=== PATIENT | female | born 1995 | race Caucasian/White ===

== ENCOUNTER 2019-06-06 13:45 | Observation (INO) | payer OTHER ==
[~2019-06-06] VITALS: Ht 160 cm; Wt 95.3 kg
== END 2019-06-06 14:25 | disposition home or self-care (01) ==
LOC: SPU 13:45
PROVIDERS: ADMIT Obstetrics & Gynecology; ATTEND Obstetrics & Gynecology
DX: O42.913 Preterm premature rupture of membranes, unspecified as to length of time between rupture and onset of labor, third trimester (principal); Z3A.30 30 weeks gestation of pregnancy
CPT/HCPCS: 81002-TC; G0378

== ENCOUNTER 2019-08-05 00:19 | Inpatient (IN) | payer OTHER ==
[~2019-08-05] VITALS: Ht 160 cm; Wt 99.8 kg
[2019-08-05] MEDS ORDERED: DINOPROSTONE 10 MG SUPP VG ONE ×2 (01:45→02:00)
[2019-08-05] MEDS ORDERED: OXYTOCIN/0.9 % SODIUM CHLORIDE 1,000 ML IV SCH ×2 (01:56→13:05)
[2019-08-05] MEDS ORDERED: TERBUTALINE SULFATE 1 MG/ML VIAL SUBCUT ONE (02:00)
[2019-08-05 02:41] LABS: BASOPHILS % (AUTO) 0.4 % (0.0-2.0); EOSINOPHILS # (AUTO) 0.1 K/uL (0.0-0.4); EOSINOPHILS % (AUTO) 0.5 % (0.0-4.0); HEMATOCRIT 37.3 % (36-48); HEMOGLOBIN 12.8 g/dL (12.0-16.0); LYMPHOCYTES # (AUTO) 3.2 K/uL (1.0-5.5); LYMPHOCYTES % (AUTO) 26.2 % (20.5-51.5); MEAN CORPUSCULAR HEMOGLOBIN 32 pg (27-31); MEAN CORPUSCULAR HGB CONC 34 % (32-36); MEAN CORPUSCULAR VOLUME 93 fL (79.0-98.0); MONOCYTES # (AUTO) 1.1 K/uL (0.0-1.0); MONOCYTES % (AUTO) 9.4 % (1.7-9.3); NEUTROPHILS # (AUTO) 7.7 K/uL (1.8-7.7); NEUTROPHILS % (AUTO) 63.5 % (40.0-70.0); PLATELET COUNT (AUTO) 225 K/uL (130-430); RED BLOOD CELL COUNT(AUTO) 4.01 MIL/uL (4.2-6.2); RED CELL DISTRIBUTION WIDTH 13.3 % (9.0-15.0); WHITE BLOOD COUNT (AUTO) 12.1 K/uL (4.8-10.8)
[2019-08-05 03:34] VITALS: BP_SYST 102
[2019-08-05] MEDS: LR 1,000 ML IV SCH ×3 (05:32→19:01)
[2019-08-05] MEDS ORDERED: ONDANSETRON HCL 4 MG/2 ML VIAL IVP ONE (08:46)
[2019-08-05] MEDS ORDERED: MORPHINE SULFATE 10MG/10ML PF AMP EP ONE (08:46)
[2019-08-05] MEDS ORDERED: BUPIVACAINE /DEX PF 0.75% SPINAL 2 ML AMP INJ ONE (08:46)
[2019-08-05] MEDS ORDERED: WATER FOR IRRIGATION,STERILE 1,000 ML IRRIG.SOLN IR ONE (08:46)
[2019-08-05] MEDS ORDERED: MIDAZOLAM HCL 5 MG/5 ML VIAL IVP ONE (08:46)
[2019-08-05] MEDS ORDERED: OXYTOCIN/0.9 % SODIUM CHLORIDE 20 UNITS/1,000 ML BAG IV ONE (08:46)
[2019-08-05] MEDS ORDERED: LR 1,000 ML IV.SOLN IV ONE (08:46)
[2019-08-05] MEDS ORDERED: MORPHINE SULFATE 10 MG/ML VIAL IVP PRN (15:15)
[2019-08-05] MEDS ORDERED: fentaNYL CITRATE/PF 100 MCG/2 ML AMP ONE (19:43)
[2019-08-05] MEDS ORDERED: ROPIVACAINE HCL/PF 0.2% 200 ML ONE (19:44)
[2019-08-05] MEDS ORDERED: LR 500 ML IV ONE (19:53)
[2019-08-05] MEDS ORDERED: FENT2mCg/mL-ROPIVA0.2%/NS EPID 200 ML EP SCH (20:00)
[2019-08-06] MEDS: LR 1,000 ML IV SCH (04:10)
[2019-08-06] MEDS ORDERED: CLINDAMYCIN 900 mg/50mL D5W 50 ML IV ONE (07:52)
[2019-08-06] MEDS ORDERED: METHYLERGONOVINE MALEATE 0.2 MG/ML AMP ONE (09:28)
[2019-08-06] MEDS ORDERED: NALOXONE HCL 0.4 MG/ML AMP (NARCAN) IVP PRN ×2 (09:30)
[2019-08-06] MEDS ORDERED: KETOROLAC TROMETHAMINE 60 MG/2 ML VIAL IM PRN (09:30)
[2019-08-06] MEDS ORDERED: DIPHENHYDRAMINE INJ 50 MG/ML VIAL IVP PRN (09:30)
[2019-08-06] MEDS ORDERED: ONDANSETRON HCL 4 MG/2 ML VIAL IVP PRN (09:30)
[2019-08-06] MEDS ORDERED: fentaNYL CITRATE/PF 100 MCG/2 ML AMP IVP PRN ×2 (09:30)
[2019-08-06] MEDS ORDERED: NALBUPHINE HCL 10 MG/ML AMP IVP PRN (09:30)
[2019-08-06] MEDS ORDERED: MORPHINE SULFATE 10MG/10ML PF AMP EP SCH (09:30)
[2019-08-06 10:09] VITALS: BP_SYST 147
[2019-08-06] MEDS ORDERED: OXYTOCIN/0.9 % SODIUM CHLORIDE 1,000 ML IV ONE ×2 (11:00→11:51)
--- NOTE | 2019-08-06 11:20 | NUR ---
Nutrition Note RD was conducting nutritional risk screening process as per nutrition care standards -- pt's initial documented ht was not correctly input into [employer], which skewed pt's BMI, necessitating high risk nutritional screen d/t BMI greater than 40 kg/m2. However, per past hospital visit Hx, pt's ht was 5'3" -- RD modified pt's ht to better reflect accurate anthropometrics measurements. Pt is now classified as low nutritional risk.
[2019-08-06] MEDS ORDERED: LR 1,000 ML IV SCH (11:51)
[2019-08-06] MEDS ORDERED: MEASLES,MUMPS&RUBELLA VACC/PF 12500 UNIT/0.5 ML VIAL SUBQ PRN (12:00)
[2019-08-06] MEDS ORDERED: ANUSOL 1 EA SUPP.RECT (PREPARATION H) RC PRN (12:00)
[2019-08-06] MEDS ORDERED: LANOLIN 7 GM OINT. TP PRN (12:00)
[2019-08-06] MEDS ORDERED: HYDROcodone/ACETAMIN 5-325 MG TAB (NORCO/ VICODIN) PO PRN (12:00)
[2019-08-06] MEDS ORDERED: BISACODYL 10 MG/SUPPOSITORY RC PRN (12:00)
[2019-08-06] MEDS ORDERED: DIPH-TET-PERTUS Vaccine 0.5 ML VIAL (ADACEL) I.M. PRN (12:00)
[2019-08-06] MEDS ORDERED: RHO(D) IMMUNE GLOBULIN/MALTOSE 1500 UNITS/1.3 ML (WINHRO) IM PRN (12:00)
[2019-08-06] MEDS ORDERED: SENNOSIDES/DOCUSATE SODIUM 1 TAB TABLET(SENOKOT-S) PO PRN (12:00)
[2019-08-06] MEDS ORDERED: ACETAMINOPHEN 325 MG TABLET PO PRN (13:45)
[2019-08-06] MEDS ORDERED: CLINDAMYCIN 900 mg/50mL D5W 50 ML IV SCH (14:00)
[2019-08-06] MEDS: CLINDAMYCIN 600 mg/50mL D5W 50 ML IV SCH ×2 (18:00→23:51)
[2019-08-06] MEDS ORDERED: TEMAZEPAM 15 MG CAPSULE PO PRN (21:00)
[2019-08-06] MEDS ORDERED: KETOROLAC TROMETHAMINE 30 MG VIAL ONE (22:24)
[2019-08-06] MEDS: KETOROLAC TROMETHAMINE 30 MG VIAL IVP SCH (23:51)
[2019-08-07] MEDS ORDERED: KETOROLAC TROMETHAMINE 30 MG VIAL IVP SCH
[2019-08-07] MEDS: OXYCODONE/ACETAMINOPHEN 5-325 TABLET PO PRN ×5 (04:49→18:53)
[2019-08-07] MEDS: CLINDAMYCIN 600 mg/50mL D5W 50 ML IV SCH (05:09)
[2019-08-07] MEDS: KETOROLAC TROMETHAMINE 30 MG VIAL IVP SCH (05:09)
[2019-08-07] MEDS ORDERED: IBUPROFEN 600 MG TABLET PO SCH ×2 (06:00→18:00)
[2019-08-07 07:07] LABS: BASOPHILS % (AUTO) 0.1 % (0.0-2.0); EOSINOPHILS % (AUTO) 0.2 % (0.0-4.0); HEMATOCRIT 29.9 % (36-48); LYMPHOCYTES # (AUTO) 1.7 K/uL (1.0-5.5); LYMPHOCYTES % (AUTO) 10.1 % (20.5-51.5); MEAN CORPUSCULAR HEMOGLOBIN 32 pg (27-31); MEAN CORPUSCULAR HGB CONC 34 % (32-36); MEAN CORPUSCULAR VOLUME 96 fL (79.0-98.0); MONOCYTES # (AUTO) 1.1 K/uL (0.0-1.0); MONOCYTES % (AUTO) 6.6 % (1.7-9.3); PLATELET COUNT (AUTO) 159 K/uL (130-430); RED BLOOD CELL COUNT(AUTO) 3.12 MIL/uL (4.2-6.2); RED CELL DISTRIBUTION WIDTH 13.4 % (9.0-15.0); WHITE BLOOD COUNT (AUTO) 16.8 K/uL (4.8-10.8)
[2019-08-07] MEDS: SIMETHICONE 80 MG TAB.CHEW PO PRN ×3 (09:43→21:28)
[2019-08-07] MEDS: DOCUSATE SODIUM 100 MG CAPSULE PO PRN ×2 (09:43→21:27)
[2019-08-07] MEDS: IBUPROFEN 600 MG TABLET PO SCH ×2 (12:38→17:47)
[2019-08-08] MEDS: IBUPROFEN 600 MG TABLET PO SCH ×2 (00:19→05:52)
== END 2019-08-08 09:54 | disposition home or self-care (01) | DRG 540 ==
LOC: SPU 00:19
PROVIDERS: ADMIT Obstetrics & Gynecology; ATTEND Obstetrics & Gynecology
PROC: 10D00Z1 Extraction of Products of Conception, Low, Open Approach (ICD-10-PCS; principal; 2019-08-06 08:30)
DX: O62.2 Other uterine inertia (principal); R71.0 Precipitous drop in hematocrit; O32.4XX0 Maternal care for high head at term, not applicable or unspecified; Z37.0 Single live birth; Z3A.39 39 weeks gestation of pregnancy
CPT/HCPCS: 36415; 85025; 86886; 86900; 86901; J1885; J2210; J2250; J2270; J2274; J2405; J2590; J3010; J3490; J7120

== ENCOUNTER 2019-08-08 14:57 | Emergency (ER) | payer OTHER, SELFPAY ==
[~2019-08-08] VITALS: Ht 160 cm; Wt 99.8 kg
[2019-08-08 14:59] VITALS: BP_SYST 141
[2019-08-08 15:20] LABS: BILIRUBIN,URINE NEGATIVE (NEGATIVE); BLOOD, URINE 3+ (NEGATIVE); CLARITY/URINE SL CLOUDY (CLEAR); COLOR,URINE YELLOW (YELLOW); GLUCOSE,URINE NEGATIVE (NEGATIVE); KETONES,URINE NEGATIVE (NEGATIVE); LEUKOCYTE ESTERASE ,URINE 1+ (NEGATIVE); NITRITE, URINE NEGATIVE (NEGATIVE); PROTEIN URINE 1+ (NEGATIVE); UROBILINOGEN,URINE 0.2 (0.2-1.0)
[2019-08-08 15:40] LABS: RBC,URINE >100 /HPF (0-3)
[2019-08-08 15:41] LABS: BACTERIA,URINE FEW /HPF (None Seen); MUCUS,URINE None Seen /LPF (None Seen)
[2019-08-08] MEDS ORDERED: NITROFURANTOIN MONOHYD/M-CRYST 100 MG CAPSULE PO ONE (17:00)
[2019-08-08 17:16] VITALS: BP_SYST 141
== END 2019-08-08 17:16 | disposition home or self-care (01) ==
LOC: EEVIPCON 14:57 → SED 14:57
DX: N39.0 Urinary tract infection, site not specified (principal); Z88.1 Allergy status to other antibiotic agents; Z20.828 Contact with and (suspected) exposure to other viral communicable diseases
CPT/HCPCS: 36415; 81000; 86710; 87086; 99283; U0002